=== PATIENT | male | born 1995 | race Caucasian/White ===

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

== ENCOUNTER 2017-05-08 15:26 | Emergency (ER) | payer OTHER ==
--- NOTE | 2017-05-08 15:41 | UC ---
Throat Pain/Nasal Wilson HPI - HPI Summary HPI Summary: 21 YEAR OLD MALE PRESENTS WITH COMPLAINS OF FEVER, CHILLS, AND COUGH - History of Current Complaint Chief Complaint: UCRespiratory Stated Complaint: COUGH / SORE THROAT Time Seen by Provider: 05/08/17 15:41 Hx Obtained From: Patient Onset/Duration: Sudden Onset Severity: Moderate Pain Scale Used: 0-10 Numeric - 5 Cough: Nonproductive Associated Signs & Symptoms: Positive: Wheezing, Sinus Discomfort, Nasal Discharge Related History: Seasonal Allergies - Epiglottits Risk Factors Epiglottis Risk Factors: Negative - Allergies/Home Medications Allergies/Adverse Reactions: Allergies Allergy/AdvReac Type Severity Reaction Status Date / Time No Known Allergies Allergy Verified 05/08/17 15:42 PMH/Surg Hx/FS Hx/Imm Hx Previously Healthy: Yes - Surgical History Surgical History: Yes Surgery Procedure, Year, and Place: tonsillectomy - Family History Known Family History: Positive: None - Social History Alcohol Use: None Substance Use Type: None Smoking Status (MU): Never Smoked Tobacco - Immunization History Most Recent Influenza Vaccination: none Most Recent Tetanus Shot: utd Vaccination Up to Date: Yes Review of Systems Constitutional: Fever, Chills, Fatigue Skin: Negative Eyes: Negative ENT: Negative Respiratory: Cough Cardiovascular: Negative Gastrointestinal: Negative Genitourinary: Negative Motor: Negative Neurovascular: Negative Musculoskeletal: Negative Neurological: Negative Psychological: Negative All Other Systems Reviewed And Are Negative: Yes Physical Exam Triage Information Reviewed: Yes Appearance: Ill-Appearing Vital Signs Reviewed: Yes Eye Exam: Normal ENT Exam: Normal Dental Exam: Normal Neck exam: Normal Neck: Positive: Supple Respiratory Exam: Normal Cardiovascular Exam: Normal Abdominal Exam: Normal Musculoskeletal Exam: Normal Neurological Exam: Normal Psychological Exam: Normal Skin Exam: Normal Throat Pain/Nasal Course/Dx - Differential Dx/Diagnosis Provider Diagnoses: COUGH. ALLERGIC RHINNITIS. FEVER. CHILLS Discharge - Discharge Plan Condition: Stable Disposition: HOME Prescriptions: Azithromyxin HARVEY (NF) [Z-Harvey (Zithromax) 250 mg tabs #6] 2 tab PO .TODAY, THEN 1 DAILY #6 tab LoraTADine TAB(NF) [Claritin 10 MG TAB(NF)] 5 mg PO DAILY #30 tab Magic M W2 Cyrus/Maal/Nyst/Lido* 5 ml SWISH SPIT QID PRN #120 ml PRN Reason: Sore Throat Patient Education Materials: Pharyngitis (ED), Allergic Rhinitis (ED) Referrals: May De Jesus MD [Medical Doctor] -
[2017-05-08 15:48] VITALS: BP 138/70
== END 2017-05-08 16:10 | disposition home or self-care (01) ==
LOC: UCCORT 15:26
DX: R05 Cough (principal); J30.9 Allergic rhinitis, unspecified; R50.9 Fever, unspecified
CPT/HCPCS: 87651; 99212; G0463

== ENCOUNTER 2017-05-16 16:49 | Emergency (ER) | payer OTHER ==
[2017-05-16 16:59] VITALS: BP 121/64
[2017-05-16] MEDS ORDERED: Albuterol/Ipratropium NEB.SOL* Albuterol 2.5 MG/Ipratropium 0.5 MG 3 ML INH ONE (17:09)
[2017-05-16] MEDS ORDERED: Albuterol 2.5 MG/3 ML NEB.SOL* (0.083%) INH ONE (17:15)
[2017-05-16] MEDS ORDERED: Ipratropium 0.5MG/2.5ML NEB* 0.5 MG/2.5 ML NEB.SOLN INH ONE (17:16)
--- NOTE | 2017-05-16 17:23 | UC ---
Respiratory Complaint HPI - HPI Summary HPI Summary: seen 2 weeks ago for chest congestion and cough-and sore throat---got better but cough continue no fever - History of Current Complaint Chief Complaint: UCRespiratory Stated Complaint: COUGH, CHEST CONGESTION Time Seen by Provider: 05/16/17 16:58 Hx Obtained From: Patient Onset/Duration: Gradual Onset, Lasting Weeks, Still Present Timing: Constant Severity Initially: Moderate Severity Currently: Moderate Character: Cough: Nonproductive Aggravating Factors: Nothing Alleviating Factors: Nothing Associated Signs And Symptoms: Positive: Negative - Allergies/Home Medications Allergies/Adverse Reactions: Allergies Allergy/AdvReac Type Severity Reaction Status Date / Time No Known Allergies Allergy Verified 05/16/17 16:59 PMH/Surg Hx/FS Hx/Imm Hx Previously Healthy: Yes - Surgical History Surgical History: Yes Surgery Procedure, Year, and Place: tonsillectomy - Family History Known Family History: Positive: None - Social History Occupation: Employed Part-time, Student Lives: With Family Alcohol Use: None Substance Use Type: None Smoking Status (MU): Never Smoked Tobacco - Immunization History Most Recent Influenza Vaccination: none Most Recent Tetanus Shot: utd Vaccination Up to Date: Yes Review of Systems Constitutional: Negative Skin: Negative Eyes: Negative ENT: Negative Respiratory: Cough Cardiovascular: Negative Gastrointestinal: Negative Genitourinary: Negative Motor: Negative Neurovascular: Negative Musculoskeletal: Negative Neurological: Negative Psychological: Negative All Other Systems Reviewed And Are Negative: Yes Physical Exam Triage Information Reviewed: Yes Appearance: Well-Appearing, No Pain Distress, Well-Nourished Vital Signs: Initial Vital Signs Temp 100.0 F 05/16/17 16:55 Pulse 90 05/16/17 16:55 Resp 16 05/16/17 16:55 BP 121/64 05/16/17 16:55 Pulse Ox 99 05/16/17 16:55 Vital Signs Reviewed: Yes Eye Exam: Normal Eyes: Positive: Conjunctiva Clear ENT Exam: Normal ENT: Positive: Normal ENT inspection, Hearing grossly normal, TMs normal. Negative: Nasal congestion, Nasal drainage, Trismus, Muffled/hoarse voice Dental Exam: Normal Neck exam: Normal Neck: Positive: Supple, Nontender, No Lymphadenopathy Respiratory Exam: Normal Respiratory: Positive: Chest non-tender, Lungs clear, Normal breath sounds, No respiratory distress, No accessory muscle use Cardiovascular Exam: Normal Cardiovascular: Positive: RRR, No Murmur, Pulses Normal, Brisk Capillary Refill Musculoskeletal Exam: Normal Musculoskeletal: Positive: Strength Intact, ROM Intact, No Edema Neurological Exam: Normal Neurological: Positive: Alert, Muscle Tone Normal Psychological Exam: Normal Skin Exam: Normal UC Diagnostic Evaluation - Laboratory O2 Sat by Pulse Oximetry: 99 Respiratory Course/Dx - Course Course Of Treatment: albuterol, tessalon, increase fluids follow with pcp prn - Differential Dx/Diagnosis Differential Diagnosis/HQI/PQRI: Asthma, Bronchitis, Laryngitis, Other - bronchospasm, post viral cough Provider Diagnoses: Bronchospasm, Discharge - Discharge Plan Condition: Stable Disposition: HOME Prescriptions: Albuterol HFA INHALER* [Ventolin HFA Inhaler*] 2 puff INH Q4H PRN #1 mdi PRN Reason: Cough Benzonatate CAP* [Tessalon 100 MG CAP*] 100 mg PO QID PRN #40 cap PRN Reason: Cough Patient Education Materials: Bronchospasm (ED), How to Use a Metered-Dose Inhaler and a Spacer (ED) Forms: *Work Release Referrals: [facility] [Outside] - If Needed
[2017-05-16] MEDS ORDERED: Albuterol HFA INHALER* 8 gm MDI INH ONE (17:55)
[2017-05-16] MEDS ORDERED: Benzonatate CAP* 100 MG PO ONE (17:56)
== END 2017-05-16 18:23 | disposition home or self-care (01) ==
LOC: UCCORT 16:49
DX: J98.01 Acute bronchospasm (principal)
CPT/HCPCS: 99213; A9270-GY; G0463; J7644

== ENCOUNTER 2018-12-02 16:42 | Emergency (ER) | payer OTHER ==
[2018-12-02 17:06] VITALS: BP 126/73
[2018-12-02] MEDS ORDERED: Azithromycin TAB* 250 MG PO ONE (17:10)
--- NOTE | 2018-12-02 17:53 | UC ---
Complaint Male HPI - HPI Summary HPI Summary: Partner tested positive for chlamydia. he is asymptomatice, but here to be tested. - History of Current Complaint Chief Complaint: UCGU Stated Complaint: PERSONAL Hx Obtained From: Patient Onset/Duration: Other - no symptoms Severity Currently: None Pain Intensity: 0 Location: None - Allergies/Home Medications Allergies/Adverse Reactions: Allergies Allergy/AdvReac Type Severity Reaction Status Date / Time No Known Allergies Allergy Verified 12/02/18 17:03 Home Medications: Home Medications NK [No Home Medications Reported] 12/02/18 [History Confirmed 12/02/18] PMH/Surg Hx/FS Hx/Imm Hx Previously Healthy: Yes - Surgical History Surgical History: Yes Surgery Procedure, Year, and Place: tonsillectomy - Family History Known Family History: Positive: None Negative: Cardiac Disease, Hypertension - Social History Alcohol Use: None Substance Use Type: None Smoking Status (MU): Never Smoked Tobacco - Immunization History Most Recent Influenza Vaccination: none Most Recent Tetanus Shot: utd Vaccination Up to Date: Yes Review of Systems All Other Systems Reviewed And Are Negative: Yes Constitutional: Positive: Negative Skin: Positive: Negative Eyes: Positive: Negative ENT: Positive: Negative Respiratory: Positive: Negative Cardiovascular: Positive: Negative Gastrointestinal: Positive: Negative Genitourinary: Positive: Negative Motor: Positive: Negative Neurovascular: Positive: Negative Musculoskeletal: Positive: Negative Neurological: Positive: Negative Psychological: Positive: Negative Is Patient Immunocompromised?: No Physical Exam Triage Information Reviewed: Yes Appearance: Well-Appearing, No Pain Distress, Well-Nourished Vital Signs: Initial Vital Signs Temp 98.7 F 12/02/18 17:02 Pulse 89 12/02/18 17:02 Resp 16 12/02/18 17:02 BP 126/73 12/02/18 17:02 Pulse Ox 100 12/02/18 17:02 Vital Signs Reviewed: Yes Eye Exam: Normal ENT Exam: Normal ENT: Positive: Pharynx normal, TMs normal Dental Exam: Normal Neck exam: Normal Respiratory Exam: Normal Cardiovascular Exam: Normal Abdominal Exam: Normal Abdomen Description: Positive: Nontender, No Organomegaly, Soft Bowel Sounds: Positive: Present Musculoskeletal Exam: Normal Neurological Exam: Normal Psychological Exam: Normal Skin Exam: Normal Complaint Male Course/Dx - Course Course Of Treatment: hx obtained, exam performed ,meds reviewed, partner is positive and obtained a urine sample to test, treated due to exposure. - Differential Dx/Diagnosis Differential Diagnosis/HQI/PQRI: Other - chlamydia exposure Provider Diagnosis: Chlamydia contact, treated Discharge - Sign-Out/Discharge Documenting (check all that apply): Patient Departure All imaging exams completed and their final reports reviewed: No Studies - Discharge Plan Condition: Stable Disposition: HOME Patient Education Materials: Chlamydia (ED) Referrals: Bonnie William MD [Primary Care Provider] - Additional Instructions: 1. you were treated today for possible chlamydia infection. 2. Your test will be available in the next 2-3 days - Billing Disposition and Condition Condition: STABLE Disposition: Home
== END 2018-12-02 17:56 | disposition home or self-care (01) ==
LOC: UCCORT 16:42
DX: Z20.2 Contact with and (suspected) exposure to infections with a predominantly sexual mode of transmission (principal)
CPT/HCPCS: 87491; 87591; 99212; A9270-GY; G0463

== ENCOUNTER 2019-07-23 14:22 | Emergency (ER) | payer BC, OTHER ==
[2019-07-23 14:57] VITALS: BP 138/68
--- NOTE | 2019-07-23 15:24 | UC ---
Skin Complaint HPI - HPI Summary HPI Summary: 23-year-old male presents to urgent care for evaluation of a "lump" to his right chest wall that has been present for the past 6-12 months. States it is nontender. Has not changed in size. Reports mother has history of lipomas. Denies fever, chills, erythema, or increased warmth. - History of Current Complaint Chief Complaint: UCSkin Time Seen by Provider: 07/23/19 15:17 Stated Complaint: LUMP ON LT SIDE Hx Obtained From: Patient Pain Intensity: 0 - Allergy/Home Medications Allergies/Adverse Reactions: Allergies Allergy/AdvReac Type Severity Reaction Status Date / Time No Known Allergies Allergy Verified 07/23/19 14:52 PMH/Surg Hx/FS Hx/Imm Hx Previously Healthy: Yes - Surgical History Surgical History: Yes Surgery Procedure, Year, and Place: tonsillectomy - Family History Known Family History: Positive: Other - Lipomas - mother - Social History Occupation: Student Lives: Dormitory/Roommates Alcohol Use: Occasionally Substance Use Type: None Smoking Status (MU): Never Smoked Tobacco - Immunization History Most Recent Influenza Vaccination: none Most Recent Tetanus Shot: utd Vaccination Up to Date: Yes Review of Systems All Other Systems Reviewed And Are Negative: Yes Constitutional: Negative: Fever, Chills Skin: Positive: Other - See HPI Respiratory: Positive: Negative Cardiovascular: Positive: Negative Gastrointestinal: Positive: Negative Genitourinary: Positive: Negative Musculoskeletal: Positive: Negative Neurological: Positive: Negative Is Patient Immunocompromised?: No Physical Exam - Summary Physical Exam Summary: GENERAL APPEARANCE: Well developed, well nourished, alert and cooperative, and appears to be in no acute distress. CARDIAC: Normal S1 and S2. No S3, S4 or murmurs. Rhythm is regular. There is no peripheral edema, cyanosis or pallor. Extremities are warm and well perfused. Capillary refill is less than 2 seconds. Peripheral pulses intact. LUNGS: Clear to auscultation without rales, rhonchi, wheezing or diminished breath sounds. ABDOMEN: Positive bowel sounds. Soft, nondistended, nontender. No guarding or rebound. No masses or hepatosplenomegally. MUSKULOSKELETAL: ROM intact to all extremities. No joint erythema or tenderness. Normal muscular development. Normal gait. SKIN: Skin normal color, texture and turgor. Small, soft, nontender circular, well circumscribed subcutaneous nodule < 1 cm in diameter to the right lateral chest wall. Triage Information Reviewed: Yes Vital Signs: Initial Vital Signs Temp 97.9 F 07/23/19 14:52 Pulse 75 07/23/19 14:52 Resp 16 07/23/19 14:52 BP 138/68 07/23/19 14:52 Pulse Ox 100 07/23/19 14:52 Vital Signs Reviewed: Yes Course/Dx - Course Course Of Treatment: 23-year-old male presents to urgent care for evaluation of a "lump" to his right chest wall that has been present for the past 6-12 months. States it is nontender. Has not changed in size. Reports mother has history of lipomas. Denies fever, chills, erythema, or increased warmth. Afebrile. Vital signs stable. Patient had a small, soft, nontender circular, well circumscribed subcutaneous nodule < 1 cm in diameter to the right lateral chest wall. I discussed with the patient that clinically the nodule is consistent with a lipoma especially with his family history however I do not have the ability to perform an ultrasound is time and cannot rule out other possible lesions. I am recommending follow-up with his primary care provider for outpatient evaluation. Anticipatory guidance and warning symptoms were reviewed with the patient. Verbalizes understanding and agrees with plan of care. - Differential Diagnoses - Skin Complaint Differential Diagnoses: Abscess, Foreign Body, Other - Lipoma - Diagnoses Provider Diagnosis: Subcutaneous nodule of chest wall Discharge ED - Sign-Out/Discharge Documenting (check all that apply): Patient Departure All imaging exams completed and their final reports reviewed: No Studies - Discharge Plan Condition: Stable Disposition: HOME Patient Education Materials: Lipoma (ED) Referrals: Bonnie William MD [Primary Care Provider] - If Needed Additional Instructions: The nodule located on your chest wall is clinically consistent with a lipoma although I didn't have the ability to confirm this diagnosis with ultrasound at this time. Lipomas are usually benign and quite often run in families. Follow-up with your primary care provider if you have any further concerns or if the nodule changes in any way. Seek immediate medical attention if you develop a fever greater than 100.5 F, the nodule becomes red, tender, hot to touch, begins to rapidly increase in size , or if you have any worsening of symptoms. - Billing Disposition and Condition Condition: STABLE Disposition: Home
== END 2019-07-23 15:37 | disposition home or self-care (01) ==
LOC: UCCORT 14:22
DX: R22.2 Localized swelling, mass and lump, trunk (principal)
CPT/HCPCS: 99211; G0463

== ENCOUNTER 2019-11-29 12:55 | Emergency (ER) | payer BC ==
[2019-11-29 13:16] VITALS: BP 119/63
[2019-11-29 13:35] LABS: Influenza A Molecular Negative (Negative); Influenza B Molecular Negative (Negative)
--- NOTE | 2019-11-29 13:43 | UC ---
FLU HPI - HPI Summary HPI Summary: 23-year-old female presents with onset of mild nasal congestion, mild sore throat, and nonproductive cough this morning. Reports his roommate who has similar symptoms has a coworker currently being isolated pending test results for COVID-19. He has had no recent travel and denies any direct contact with persons being isolated for or testing positive for COVID-19. Denies fever, chills, myalgias, fatigue, ear pain, dysphagia, chest pain, shortness of breath , abdominal pain, nausea, or vomiting. - History of Current Complaint Chief Complaint: UCGeneralIllness Stated Complaint: COUGH,SORE THROAT Time Seen by Provider: 11/29/19 13:10 Hx Obtained From: Patient Pain Intensity: 0 - Allergy/Home Medications Allergies/Adverse Reactions: Allergies Allergy/AdvReac Type Severity Reaction Status Date / Time No Known Allergies Allergy Verified 11/29/19 13:15 Home Medications: Home Medications NK [No Home Medications Reported] 12/02/18 [History Confirmed 11/29/19] PMH/Surg Hx/FS Hx/Imm Hx Previously Healthy: Yes - Denies significant PMH - Surgical History Surgical History: Yes Surgery Procedure, Year, and Place: tonsillectomy - Family History Known Family History: Positive: Other - [place] - mother - Social History Occupation: Student Lives: With Family Alcohol Use: Occasionally Substance Use Type: None Smoking Status (MU): Never Smoked Tobacco - Immunization History Most Recent Influenza Vaccination: none Most Recent Tetanus Shot: utd Vaccination Up to Date: Yes Review of Systems All Other Systems Reviewed And Are Negative: Yes Constitutional: Negative: Fever, Chills, Fatigue Eyes: Negative: Drainage, Eye Redness ENT: Positive: Sore Throat, Sinus Congestion. Negative: Ear Ache, Nasal Discharge, Sinus Pain/Tenderness Respiratory: Positive: Cough. Negative: Shortness Of Breath Cardiovascular: Negative: Chest Pain Gastrointestinal: Negative: Abdominal Pain, Vomiting, Diarrhea, Nausea Genitourinary: Positive: Negative Musculoskeletal: Positive: Negative Neurological/Mental Status: Positive: Negative Is Patient Immunocompromised?: No Physical Exam - Summary Physical Exam Summary: GENERAL APPEARANCE: Well developed, well nourished, alert and cooperative, and appears to be in no acute distress. EYES: Conjunctiva clear. No drainage. EARS: External auditory canals and tympanic membranes clear, hearing grossly intact. NOSE: No nasal congestion or discharge. THROAT: Mild pharyngeal erythema. Surgically absent tonsils. Uvula midline. NECK: Neck supple, non-tender without lymphadenopathy. CARDIAC: Normal S1 and S2. No S3, S4 or murmurs. Rhythm is regular. There is no peripheral edema, cyanosis or pallor. Extremities are warm and well perfused. Capillary refill is less than 2 seconds. Peripheral pulses intact. LUNGS: Clear to auscultation without rales, rhonchi, wheezing or diminished breath sounds. Cough not observed. ABDOMEN: Positive bowel sounds. Soft, nondistended, nontender. No guarding or rebound. No masses or hepatosplenomegally. MUSKULOSKELETAL: ROM intact to all extremities. No joint erythema or tenderness. Normal muscular development. Normal gait. SKIN: Skin normal color, texture and turgor with no lesions or eruptions. Triage Information Reviewed: Yes Vital Signs: Initial Vital Signs Temp 99.4 F 11/29/19 13:09 Pulse 83 11/29/19 13:09 Resp 18 11/29/19 13:09 BP 119/63 11/29/19 13:09 Pulse Ox 100 11/29/19 13:09 Vital Signs Reviewed: Yes Flu Course/Dx - Course Course Of Treatment: 23-year-old female presents with onset of mild nasal congestion, mild sore throat, and nonproductive cough this morning. Reports his roommate who has similar symptoms has a coworker currently being isolated pending test results for COVID-19. He has had no recent travel and denies any direct contact with persons being isolated for or testing positive for COVID-19. Denies fever, chills, myalgias, fatigue, ear pain, dysphagia, chest pain, shortness of breath , abdominal pain, nausea, or vomiting. Afebrile. Vital signs stable. Patient had no nasal congestion or drainage, normal TMs, mild pharyngeal erythema, surgically absent tonsils, no cervical lymphadenopathy, clear bilateral breath sounds, and otherwise unremarkable exam. Rapid strep test and rapid flu tests were negative. Reviewed results with the patient. We discussed that his history is not significant for exposure to COVID-19 virus and based on his exam I have a very low suspicion for this. Recommending symptomatic treatment for a viral upper respiratory infection. He is to return here or follow-up with his primary care provider in 7 days if symptoms are not improving. Anticipatory guidance of warning symptoms reviewed of the patient. Verbalizes understanding and agrees with plan of care. - Differential Dx/Diagnosis Differential Diagnosis/HQI/PQRI: Bronchitis, Influenza, Pneumonia, Upper Respiratory Infection Provider Diagnosis: Viral URI Discharge ED - Sign-Out/Discharge Documenting (check all that apply): Patient Departure All imaging exams completed and their final reports reviewed: No Studies - Discharge Plan Condition: Stable Disposition: HOME Patient Education Materials: Upper Respiratory Infection (ED) Forms: *Work Release Referrals: Bonnie William MD [Primary Care Provider] - 7 Days Additional Instructions: The rapid strep and rapid flu test performed in the clinic today were negative. Your history and exam are consistent with a viral upper respiratory infection. Viral infections do not respond to antibiotics and are limited to the treatment of symptoms. Viral infections typically run their course in 7-10 days. Drink plenty of fluids to avoid dehydration especially if you are running any fever. Use a saline rinse kit such as Neti Pot or NeilMed at least twice a day to help thin secretions and promote drainage of the sinuses. Use fluticasone (Flonase) nasal spray 2 sprays each nostril once daily. Take over the counter acetaminophen (Tylenol) or ibuprofen (Advil, Motrin) according to directions as needed for pain or fever. Use salt water gargles several times a day if you have a sore throat. You may also use Chloraseptic spray or Cepacol lonzenges according to directions which contain a numbing medication and can provide some temporary relief from your sore throat. Follow up with your primary care provider in 7 days if symptoms persist. Seek immediate medical attention in the emergency room if you have fever greater than 100.5 F despite taking acetaminophen or ibuprofen, have chest pain , difficulty breathing, are unable to swallow, or have any worsening of symptoms. - Billing Disposition and Condition Condition: STABLE Disposition: Home
== END 2019-11-29 13:57 | disposition home or self-care (01) ==
LOC: UCCORT 12:55
DX: J06.9 Acute upper respiratory infection, unspecified (principal)
CPT/HCPCS: 87651; 99211; G0463